=== PATIENT | male | born 1990 | race Caucasian/White ===

== ENCOUNTER 2025-08-19 11:08 | Emergency (ER) | payer BC ==
[2025-08-19] MEDS: Lidocaine 1% with EPINEPHrine 1:100,000 10 ML MDV INJECT ONE (11:50)
[2025-08-19] MEDS: Bacitracin Oint 1 GM U/D Packet TOP ONE (12:14)
== END 2025-08-19 12:28 | disposition home or self-care (01) ==
LOC: CC.ED 11:08
DX: S01.81XA Laceration without foreign body of other part of head, initial encounter (principal); S11.91XA Laceration without foreign body of unspecified part of neck, initial encounter; F17.200 Nicotine dependence, unspecified, uncomplicated; Z79.899 Other long term (current) drug therapy; W22.8XXA Striking against or struck by other objects, initial encounter
CPT/HCPCS: 12011; 12042; 99282; J2004